=== PATIENT | male | born 1960 | race African-American/Black ===

== ENCOUNTER 2022-03-02 08:56 | Inpatient (IN) ==
[2022-02-26 12:14] LABS: Basophils % 0.2 % (0.0-0.8); Eosinophils % 0.4 % (0.00-10.9); Hematocrit 44.1 VOL% (42.0-52.0); Hemoglobin 14.5 GM/DL (14.0-18.0); Immature Granulocytes % 0.2 %; Immature Granulocytes Absolute 0.01 #; Lymphocytes # 1.9 10*3/uL (1.4-4.0); Lymphocytes % 39.7 % (21.2-54.2); Mean Corpuscular HGB Conc 32.9 GM/DL (32-36); Mean Corpuscular Volume 90.6 FL (87-102); Mean Platelet Volume 10.2 FL (9.6-12.0); Monocytes # 0.5 10*3/uL (0.11-0.8); Monocytes % 10.3 % (1.7-12.7); Neutrophils % 49.2 % (38.7-73.9); Platelet Count 260 T/CUMM (130-400); Red Blood Count 4.87 MC/CUMM (3.8-5.5); Red Cell Distribution Width 12.9 % (9.3-17.3); White Blood Count 4.7 T/CUMM (4-12)
[2022-02-26 12:34] LABS: Albumin 3.9 G/DL (3.4-5.0); Bilirubin,Total 0.4 MG/DL (0.20-1.00); Calcium 9.3 MG/DL (8.5-10.1); Osmolality,Calculated 276.7 MOS/KG (273-304); Potassium 4.1 MMOL/L (3.5-5.1); Total Protein 7.7 G/DL (6.4-8.2)
[~2022-03-02 08:56] MED LIST: ALVIMOPAN 12 MG CAPSULE PO ONE; LACTATED RINGERS 1,000 ML IV SCH; SODIUM PHOSPHATE ENEMA 133 ML BOTTLE RECTAL ONE; cefTRIAXone 1,000 MG in SODIUM CHLORIDE 0.9% 100 ML IV ONE
[2022-03-02] MEDS ORDERED: ONDANSETRON 4 MG/2 ML VIAL ONE ×2 (10:39→15:09)
[2022-03-02] MEDS ORDERED: ROCURONIUM 50 MG/5 ML VIAL IV ONE (10:39)
[2022-03-02] MEDS ORDERED: MIDAZOLAM 2 MG/2 ML VIAL ONE (10:39)
[2022-03-02] MEDS ORDERED: fentaNYL 100 MCG/2 ML VIAL ONE ×2 (10:39→11:47)
[2022-03-02] MEDS ORDERED: propofoL 200 MG/20 ML VIAL IV ONE (10:39)
[2022-03-02] MEDS ORDERED: LIDOCAINE 2% 5 ML VIAL ONE (10:39)
[2022-03-02] MEDS ORDERED: SEVOFLURANE 1 UNIT/15 MINUTE INH ONE ×12 (10:39→14:59)
[2022-03-02] MEDS ORDERED: DIAZEPAM 5 MG TABLET PO ONE (10:50)
[2022-03-02] MEDS ORDERED: FAMOTIDINE 20 MG TABLET PO ONE (10:50)
[2022-03-02] MEDS ORDERED: ROPIVACAINE 0.5% 30 ML VIAL ONE (11:07)
[2022-03-02] MEDS ORDERED: BUPIVACAINE MPF 0.5% 30 ML VIAL ONE (11:18)
[2022-03-02] MEDS ORDERED: PHENYLEPHRINE 1 MG/10 ML SYRINGE IV ONE ×2 (11:47→15:16)
[2022-03-02] MEDS ORDERED: ePHEDrine 50 MG/ML VIAL ONE (12:10)
[2022-03-02 12:23] LABS: Bilirubin,Urine Negative (Negative); Glucose,Urine (UA) Negative (Negative); Ketones,Urine Negative (Negative); Nitrite,Urine Negative (Negative); Protein,Urine Negative (Negative); RBC,Urine 6 /HPF (0-4); Urine Appearance Clear (Clear); Urine Color Yellow (Yellow)
[2022-03-02 12:24] LABS: Blood, Urine Trace mg/dL (Negative); Urine Urobilinogen 0.2 eU/dL (<2.0)
[2022-03-02] MEDS ORDERED: METHYLENE BLUE 10 ML VIAL IV ONE (13:20)
[2022-03-02] MEDS ORDERED: FUROSEMIDE 20 MG/2 ML VIAL ONE (13:24)
[2022-03-02] MEDS ORDERED: LACTATED RINGERS 2,000 ML IV ONE (14:58)
[2022-03-02] MEDS ORDERED: DEXAMETHASONE 4 MG/1 ML VIAL ONE (15:09)
[2022-03-02] MEDS ORDERED: GLYCOPYRROLATE 0.4 MG/2 ML VIAL ONE (15:14)
[2022-03-02] MEDS ORDERED: NEOSTIGMINE 10 MG/10 ML VIAL ONE (15:15)
[2022-03-02] MEDS ORDERED: CALCIUM CARBONATE CHEW 500 MG TABLET PO PRN (15:25)
[2022-03-02] MEDS ORDERED: ONDANSETRON 4 MG/2 ML VIAL IV PRN (15:25)
[2022-03-02] MEDS ORDERED: PROMETHAZINE 25 MG/1 ML VIAL IM PRN (15:25)
[2022-03-02] MEDS ORDERED: diphenhydrAMINE 50 MG/1 ML VIAL IV PRN (15:25)
[2022-03-02] MEDS ORDERED: SIMETHICONE CHEW 80 MG TABLET PO PRN (15:33)
[2022-03-02 16:43] LABS: Basophils % 0.1 % (0.0-0.8); Hematocrit 42.8 VOL% (42.0-52.0); Immature Granulocytes % 0.6 %; Immature Granulocytes Absolute 0.06 #; Lymphocytes # 1.4 10*3/uL (1.4-4.0); Mean Corpuscular HGB Conc 32.7 GM/DL (32-36); Mean Corpuscular Volume 90.9 FL (87-102); Mean Platelet Volume 9.4 FL (9.6-12.0); Monocytes # 0.6 10*3/uL (0.11-0.8); Monocytes % 5.5 % (1.7-12.7); Neutrophils % 80.8 % (38.7-73.9); Platelet Count 226 T/CUMM (130-400); Red Blood Count 4.71 MC/CUMM (3.8-5.5); Red Cell Distribution Width 12.8 % (9.3-17.3); White Blood Count 10.8 T/CUMM (4-12)
[2022-03-02 16:57] LABS: Calcium 8.7 MG/DL (8.5-10.1); Osmolality,Calculated 276.7 MOS/KG (273-304)
[2022-03-02] MEDS: SODIUM CHLORIDE 0.9% 1,000 ML IV SCH (17:21)
[2022-03-02] MEDS: oxyCODONE/ACETAMINOPHEN 5-325 MG TABLET PO PRN ×2 (17:31→21:37)
[2022-03-02] MEDS: HYDROmorphone 1 MG/1 ML SYRINGE IV PRN ×2 (18:32→22:50)
[2022-03-02] MEDS: ACETAMINOPHEN 325 MG TABLET PO SCH (18:50)
[2022-03-02] MEDS: ROSUVASTATIN 20 MG TABLET PO SCH (21:36)
[2022-03-02] MEDS: DOCUSATE SODIUM 100 MG CAPSULE PO SCH (21:36)
[2022-03-02] MEDS: amLODIPine 5 MG TABLET PO SCH (21:36)
[2022-03-03] MEDS: ACETAMINOPHEN 325 MG TABLET PO SCH ×5 (00:36→23:53)
[2022-03-03] MEDS: SODIUM CHLORIDE 0.9% 1,000 ML IV SCH (03:39)
[2022-03-03 05:32] LABS: Hematocrit 40.5 VOL% (42.0-52.0); Hemoglobin 13.4 GM/DL (14.0-18.0); Immature Granulocytes % 0.3 %; Immature Granulocytes Absolute 0.03 #; Lymphocytes # 0.7 10*3/uL (1.4-4.0); Lymphocytes % 7.7 % (21.2-54.2); Mean Corpuscular HGB Conc 33.1 GM/DL (32-36); Mean Platelet Volume 10.2 FL (9.6-12.0); Monocytes # 0.5 10*3/uL (0.11-0.8); Monocytes % 5.5 % (1.7-12.7); Neutrophils % 86.5 % (38.7-73.9); Platelet Count 240 T/CUMM (130-400); Red Cell Distribution Width 12.7 % (9.3-17.3); White Blood Count 8.9 T/CUMM (4-12)
[2022-03-03 05:51] LABS: Calcium 8.8 MG/DL (8.5-10.1); Osmolality,Calculated 271.1 MOS/KG (273-304); Potassium 4.2 MMOL/L (3.5-5.1)
[2022-03-03] MEDS: amLODIPine 5 MG TABLET PO SCH ×2 (08:41→20:56)
[2022-03-03] MEDS: ALVIMOPAN 12 MG CAPSULE PO SCH ×2 (08:41→20:53)
[2022-03-03] MEDS: cefTRIAXone 1,000 MG in SODIUM CHLORIDE 0.9% 100 ML IV SCH (08:41)
[2022-03-03] MEDS: DOCUSATE SODIUM 100 MG CAPSULE PO SCH ×2 (08:41→20:53)
[2022-03-03] MEDS: PANTOPRAZOLE 40 MG TABLET PO SCH (08:41)
[2022-03-03] MEDS: ROSUVASTATIN 20 MG TABLET PO SCH (20:53)
[2022-03-03] MEDS: HYDROmorphone 1 MG/1 ML SYRINGE IV PRN (20:54)
[2022-03-04] MEDS: ACETAMINOPHEN 325 MG TABLET PO SCH (05:47)
[2022-03-04 06:46] LABS: Basophils % 0.1 % (0.0-0.8); Eosinophils % 0.2 % (0.00-10.9); Hematocrit 39.8 VOL% (42.0-52.0); Immature Granulocytes % 0.4 %; Immature Granulocytes Absolute 0.03 #; Lymphocytes % 24.6 % (21.2-54.2); Mean Corpuscular HGB Conc 32.7 GM/DL (32-36); Mean Corpuscular Volume 90.5 FL (87-102); Mean Platelet Volume 10.2 FL (9.6-12.0); Monocytes # 0.7 10*3/uL (0.11-0.8); Monocytes % 8.7 % (1.7-12.7); Platelet Count 207 T/CUMM (130-400); Red Cell Distribution Width 13.2 % (9.3-17.3); White Blood Count 8.3 T/CUMM (4-12)
[2022-03-04 07:05] LABS: Calcium 8.7 MG/DL (8.5-10.1); Osmolality,Calculated 277.5 MOS/KG (273-304); Potassium 4.1 MMOL/L (3.5-5.1)
[2022-03-04 07:11] LABS: Risk Ratio 3.25; VLDL Cholesterol 22.2 MG/DL
[2022-03-04 07:36] VITALS: BP 153/91
[2022-03-04] MEDS ORDERED: BISACODYL 10 MG SUPP RECTAL ONE (08:00)
[2022-03-04] MEDS: PANTOPRAZOLE 40 MG TABLET PO SCH (08:49)
[2022-03-04] MEDS: DOCUSATE SODIUM 100 MG CAPSULE PO SCH (08:50)
[2022-03-04] MEDS: ALVIMOPAN 12 MG CAPSULE PO SCH (08:50)
[2022-03-04] MEDS: amLODIPine 5 MG TABLET PO SCH (08:50)
[2022-03-04] MEDS: cefTRIAXone 1,000 MG in SODIUM CHLORIDE 0.9% 100 ML IV SCH (08:54)
[2022-03-04] MEDS ORDERED: ROSUVASTATIN 20 MG TABLET PO SCH (09:00)
== END 2022-03-04 11:26 | disposition home or self-care (01) | DRG 707 ==
LOC: N.OR 08:56 → N.SDSINP 09:08 → N.3E 17:00
PROVIDERS: ADMIT Surgery; ATTEND Surgery